=== PATIENT | male | born 1985 | race Caucasian/White ===

== ENCOUNTER 2023-10-24 06:53 | Day surgery (SDC) | payer BC ==
[~2023-10-24] VITALS: Ht 185.4 cm; Wt 94.7 kg
[~2023-10-24 06:53] MED LIST: BENTYL 10MG10 MG/CAP PO; NO HOME MEDICATIONS
[2023-10-24 07:14] VITALS: BP 144/77; PULSE 77; TEMP 97.7
[2023-10-24] MEDS ORDERED: LAMICTAL ODT200 MG TL (07:19)
[2023-10-24] MEDS ORDERED: LAMICTAL200 MG PO (07:20)
[2023-10-24] MEDS ORDERED: NORCO 325 MG-51 TAB PO (09:27)
[2023-10-24 10:55] VITALS: BP 126/74; PULSE 64; TEMP 97.8
[2023-10-24 11:10] VITALS: BP 123/74; PULSE 72
[2023-10-24 11:25] VITALS: BP 117/59; PULSE 59
--- NOTE | 2023-10-24 18:42 | NUR ---
[id number]: PT TO RECOVERY BAY 2 FROM PACU S/P GENITAL WART EXCISION A&O, PLACED ON MONITOR, VSS ON RA WOUNDS OPEN TO AIR, COVERED WITH SILVER CREAM, SCANT BLOOD, OTHERWISE CDI/HEMASTATIC, INITIALLY PAINFUL WHICH SPONTANEOUSLY RESOLVED - PT DENEIS COMPLAINT FOR REMAINDER OF STAY RECEIVED REPORT AND ASSUMED CARE OF PT FROM KEVIN CAMARENA PLAN FOR MOM/RIDE TO PICK HIM UP WHEN READY FOR DC (CALLED AT 1030) PROVIDED FOOD/FLUIDS, TOLERATING WELL PT HAS REMAINED A&O, NAD, VSS ON RA, TOLERATING PO, IS WITHOUT SIGNIFICANT COMPLAINT, WITH STEADY GAIT BY END OF STAY IV D/C'D. D/C INSTRUCTIONS, FOLLOW UP REVIEWED AND HANDED TO PT. ALL QUESTIONS AND CONCERNS ADDRESSED TO PT SATISFACTION. TAKEN TO EXIT VIA W/C WITH ALL BELONGINGS AND PAPERWORK IN HAND, ASSISTED INTO PASSENGER SEAT OF POV. MOM TO DRIVE HOME.
== END 2023-10-24 10:45 | disposition home or self-care (01) ==
LOC: SDCO 06:53
DX: A63.0 Anogenital (venereal) warts (principal); F17.210 Nicotine dependence, cigarettes, uncomplicated
CPT/HCPCS: J0690; J1100; J1170; J2405; J2704; J3010; J7120